=== PATIENT | female | born 1970 | race Caucasian/White ===

== ENCOUNTER 2016-12-07 14:31 | Emergency (ER) | payer MEDICARE ==
[~2016-12-07] VITALS: Ht 160 cm; Wt 72.7 kg
[~2016-12-07 14:31] MED LIST: ANTIVERT 25MG25 MG PO; ASPIRIN E.C. 8181 MG PO; CIPRO 500MG TA500 MG PO; CLARITIN 1010 MG/TAB PO; COLACE 100100 MG/CAP PO; CYMBALTA 30MG30 MG PO; FLAGYL500 MG PO; FLEXERIL 1010 MG/TAB PO; LIPITOR 40MG TA40 MG PO; LYRICA 50MG CAP50 MG PO; NO HOME MEDICATIONS; NORCO 325 MG-51 TAB PO; NORCO 325 MG-7.1 TAB PO; PEPCID 20MG TAB20 MG PO; PERCOCET 325 MG1 TA2 PO; PRILOSEC 20MG20 MG PO; PROAIR HFA0.09 MG/AC IH; TOPROL XL 25MG25 MG PO; TYLENOL 500MG500 MG PO; VALIUM 5MG T5 MG/TAB PO; VITAMIN D1000 IU PO; VTAMINC250TA PO; ZITHROMAX 250M250 MG PO; ZOFRAN 4MG T4 MG/TAB PO; ZOFRAN ODT4 MG PO
[2016-12-07 14:35] VITALS: BP 116/77; PULSE 102; TEMP 97.9
[2016-12-07] MEDS ORDERED: PREDNISONE20 MG PO (15:13)
== END 2016-12-07 15:30 | disposition home or self-care (01) ==
LOC: COL.ER 14:31
DX: L51.9 Erythema multiforme, unspecified (principal)
CPT/HCPCS: J7512

== ENCOUNTER 2016-12-09 13:39 | Observation (INO) | payer MEDICARE ==
[2016-12-09] VITALS (100 sets, daily range): BP systolic 90–92; BP diastolic 54–58; PULSE 58–80; TEMP 97.1–98.1; O2SAT 93–98
[~2016-12-09] VITALS: Ht 160 cm; Wt 73.1 kg
[~2016-12-09 13:39] MED LIST changes: +PREDNISONE20 MG PO
[2016-12-09] MEDS ORDERED: EPIPEN 2-PAK1 MG/ML IM (15:40)
[2016-12-09] MEDS ORDERED: MEDROL 4MG DOSPA4 MG PO (15:40)
[2016-12-09 19:49] LABS: BASO % 0.1 % (0.0-2.0); GRAN # 14.6 (1.4-6.5); GRAN % 72.8 % (42.2-75.2); HEMATOCRIT 37.8 % (37.0-47.0); HEMOGLOBIN 12.6 g/dl (12.5-16.0); LYMPH # 4.8 (1.2-3.4); LYMPH % 23.8 % (20.0-51.0); MEAN CELL VOLUME 94 fl (80.0-100.0); MEAN CORPUSCULAR HEMOGLOBIN 31 pg (27.0-31.0); MEAN CORPUSCULAR HGB CONC 33 g/dl (33.0-37.0); MONO # 0.6 (0.1-0.6); MONO % 2.8 % (1.7-9.3); PLATELET COUNT 229 K/mm3 (130-400); RED BLOOD COUNT 4.04 M/mm3 (4.10-5.30); REDCELL DISTRIBUTION WIDTH-CV 14.2 % (11.5-14.5)
[2016-12-09 19:50] LABS: WHITE BLOOD COUNT 20.1 K/mm3 (4.8-10.8)
[2016-12-09 20:00] LABS: ADJUSTED CALCIUM 9.2 mg/dL (8.4-10.2); ALBUMIN 3.3 gm/dL (3.5-5.0); BILIRUBIN,TOTAL 0.7 mg/dL (0.0-1.0); C-REACTIVE PROTEIN 4.9 mg/dL (0.0-0.9); CALCIUM 8.6 mg/dL (8.4-10.2); CREATININE, serum 0.71 mg/dL (0.52-1.25); POTASSIUM 3.6 mmol/L (3.4-5.0); TOTAL PROTEIN 6.4 gm/dL (6.4-8.2)
[2016-12-10] VITALS (692 sets, daily range): BP systolic 78–103; BP diastolic 43–58; PULSE 60–99; TEMP 97.2–98.2; O2SAT 86–99
[2016-12-10 08:36] LABS: PH 6 (5-8); SQUAMOUS EPITHELIAL 0-2 /hpf; URINE APPEARANCE Clear; URINE BACTERIA None Seen /hpf; URINE BILIRUBIN Negative (NEGATIVE); URINE BLOOD Negative (NEGATIVE); URINE COLOR Straw; URINE GLUCOSE Negative (NEGATIVE); URINE KETONE Trace (NEGATIVE); URINE RBC 0-2 /hpf; URINE UROBILINOGEN Negative (NEGATIVE); URINE WBC 0-2 /hpf
[2016-12-10 09:11] LABS: BASO % 0.1 % (0.0-2.0); GRAN # 10.5 (1.4-6.5); GRAN % 84.4 % (42.2-75.2); LYMPH # 1.7 (1.2-3.4); LYMPH % 13.7 % (20.0-51.0); MEAN CELL VOLUME 91 fl (80.0-100.0); MEAN CORPUSCULAR HGB CONC 34 g/dl (33.0-37.0); MONO # 0.2 (0.1-0.6); MONO % 1.2 % (1.7-9.3); PLATELET COUNT 190 K/mm3 (130-400); RED BLOOD COUNT 3.39 M/mm3 (4.10-5.30); REDCELL DISTRIBUTION WIDTH-CV 14.3 % (11.5-14.5); WHITE BLOOD COUNT 12.4 K/mm3 (4.8-10.8)
[2016-12-10 09:21] LABS: CALCIUM 8.3 mg/dL (8.4-10.2); CREATININE, serum 0.49 mg/dL (0.52-1.25); POTASSIUM 3.6 mmol/L (3.4-5.0)
[2016-12-10 09:36] LABS: HEMOGLOBIN 10.5 g/dl (12.5-16.0); MEAN CORPUSCULAR HEMOGLOBIN 31 pg (27.0-31.0)
[2016-12-11] VITALS (134 sets, daily range): BP systolic 90–104; BP diastolic 49–69; PULSE 48–79; TEMP 97.8–98.3; O2SAT 92–96
[2016-12-11] MEDS ORDERED: ZANTAC 150MG T150 MG PO (11:40)
[2016-12-11] MEDS ORDERED: BENADRYL25 M2 PO (11:41)
[2016-12-11] MEDS ORDERED: EPIPEN 2-PAK1 MG/ML IM (11:44)
[2016-12-11] MEDS ORDERED: CLARITIN 1010 MG/TAB PO (11:45)
[2016-12-11] MEDS ORDERED: PREDNISONE20 MG PO (11:45)
== END 2016-12-11 15:15 | disposition home or self-care (01) ==
LOC: COL.ER 13:39 → ICU 19:52 → IMCU 12-10 18:04
PROVIDERS: Emergency Medicine; Internal Medicine; Nurse Practitioner Family
DX: T78.2XXA Anaphylactic shock, unspecified, initial encounter (principal); L50.9 Urticaria, unspecified; R06.02 Shortness of breath; I10 Essential (primary) hypertension; M79.7 Fibromyalgia; K58.9 Irritable bowel syndrome, unspecified; K21.9 Gastro-esophageal reflux disease without esophagitis
CPT/HCPCS: 99239; G0378; J0171; J1200; J1650; J2930; J7030

== ENCOUNTER 2017-01-18 20:16 | Emergency (ER) | payer MEDICARE, MEDICAID ==
[~2017-01-18] VITALS: Ht 160 cm; Wt 72.7 kg
[~2017-01-18 20:16] MED LIST changes: +BENADRYL25 M2 PO; +EPIPEN 2-PAK1 MG/ML IM; +MEDROL 4MG DOSPA4 MG PO; +ZANTAC 150MG T150 MG PO
[2017-01-18 20:21] VITALS: BP 114/75; TEMP 98.1
[2017-01-18] MEDS ORDERED: AMOXICILLIN 8751 TAB PO (22:04)
[2017-01-18 22:25] VITALS: PULSE 86
== END 2017-01-18 22:25 | disposition home or self-care (01) ==
LOC: COL.ER 20:16
DX: S61.252A Open bite of right middle finger without damage to nail, initial encounter (principal); S61.251A Open bite of left index finger without damage to nail, initial encounter; W54.0XXA Bitten by dog, initial encounter; Y92.009 Unspecified place in unspecified non-institutional (private) residence as the place of occurrence of the external cause; Z23 Encounter for immunization

== ENCOUNTER 2017-02-01 18:27 | Emergency (ER) | payer MEDICARE, MEDICAID ==
[~2017-02-01 18:27] MED LIST changes: +AMOXICILLIN 8751 TAB PO
[2017-02-01 18:31] VITALS: BP 118/66; PULSE 88; TEMP 98.2
== END 2017-02-01 18:37 | disposition home or self-care (01) ==
LOC: COL.ER 18:27
DX: Z48.02 Encounter for removal of sutures (principal)

== ENCOUNTER 2017-02-16 17:58 | Emergency (ER) | payer MEDICARE, MEDICAID ==
[~2017-02-16] VITALS: Ht 160 cm; Wt 68.2 kg
[2017-02-16 18:01] VITALS: BP 128/66; TEMP 98.2
[2017-02-16 19:03] LABS: BASO % 0.2 % (0.0-2.0); EOS # 0.1 (0.0-0.7); EOS % 0.7 % (0-4.0); GRAN # 5.3 (1.4-6.5); GRAN % 56.4 % (42.2-75.2); HEMATOCRIT 42.2 % (37.0-47.0); HEMOGLOBIN 14.6 g/dl (12.5-16.0); LYMPH # 3.5 (1.2-3.4); LYMPH % 36.8 % (20.0-51.0); MEAN CELL VOLUME 89 fl (80.0-100.0); MEAN CORPUSCULAR HEMOGLOBIN 31 pg (27.0-31.0); MEAN CORPUSCULAR HGB CONC 35 g/dl (33.0-37.0); MEAN PLATELET VOLUME 9.9 fl (7.4-10.4); MONO # 0.5 (0.1-0.6); MONO % 5.7 % (1.7-9.3); PLATELET COUNT 235 K/mm3 (130-400); RED BLOOD COUNT 4.73 M/mm3 (4.10-5.30); REDCELL DISTRIBUTION WIDTH-CV 12.7 % (11.5-14.5); WHITE BLOOD COUNT 9.5 K/mm3 (4.8-10.8)
[2017-02-16 19:11] LABS: ADJUSTED CALCIUM 9.3 mg/dL (8.4-10.2); ALBUMIN 4.4 gm/dL (3.5-5.0); BILIRUBIN,TOTAL 0.6 mg/dL (0.0-1.0); CALCIUM 9.6 mg/dL (8.4-10.2); CREATININE, serum 0.69 mg/dL (0.52-1.25); POTASSIUM 4.2 mmol/L (3.4-5.0); TOTAL PROTEIN 7.9 gm/dL (6.4-8.2)
[2017-02-16] MEDS ORDERED: FIORICET 325 MG1 TA1 PO (20:18)
[2017-02-16] MEDS ORDERED: ZOFRAN ODT4 MG PO (20:18)
[2017-02-16 20:28] VITALS: PULSE 83
== END 2017-02-16 20:32 | disposition home or self-care (01) ==
LOC: COL.ER 17:58
PROVIDERS: Emergency Medicine
DX: G43.909 Migraine, unspecified, not intractable, without status migrainosus (principal); F17.210 Nicotine dependence, cigarettes, uncomplicated
CPT/HCPCS: J1200; J2765; J3010; J7030

== ENCOUNTER 2017-02-17 05:11 | Emergency (ER) | payer MEDICARE, MEDICAID ==
[~2017-02-17] VITALS: Ht 160 cm; Wt 68.0 kg
[~2017-02-17 05:11] MED LIST changes: +FIORICET 325 MG1 TA1 PO
[2017-02-17 05:13] VITALS: BP 117/67; TEMP 98.2
[2017-02-17 07:56] VITALS: PULSE 74
== END 2017-02-17 08:00 | disposition home or self-care (01) ==
LOC: COL.ER 05:11
DX: G43.909 Migraine, unspecified, not intractable, without status migrainosus (principal)
CPT/HCPCS: J1170; J1885; J2550

== ENCOUNTER 2017-04-01 19:02 | Emergency (ER) | payer MEDICARE, MEDICAID ==
[~2017-04-01] VITALS: Ht 160 cm; Wt 65.9 kg
[2017-04-01 19:18] VITALS: TEMP 98.4
[2017-04-01] MEDS ORDERED: CYMBALTA 60MG60 MG PO (19:22)
[2017-04-01] MEDS ORDERED: FLEXERIL 1010 MG/TAB PO (21:25)
[2017-04-01] MEDS ORDERED: NORCO 325 MG-51 TAB PO (21:25)
[2017-04-01 21:34] VITALS: BP 110/78; PULSE 82
== END 2017-04-01 21:36 | disposition home or self-care (01) ==
LOC: COL.ER 19:02
DX: M54.41 Lumbago with sciatica, right side (principal)
CPT/HCPCS: J1170; J1885

== ENCOUNTER → 2017-04-17 | Outpatient (CLI) | payer MEDICARE, MEDICAID ==
[~2017-04-17] MED LIST changes: +CYMBALTA 60MG60 MG PO; +DOXYCYCLINE 10100 MG PO
== END ==
LOC: COL.RAD 09:30
DX: M25.551 Pain in right hip (principal); M13.851 Other specified arthritis, right hip
CPT/HCPCS: J3301; Q9967

== ENCOUNTER 2017-05-21 21:43 | Emergency (ER) | payer MEDICARE, MEDICAID ==
[~2017-05-21] VITALS: Ht 160 cm; Wt 63.6 kg
[~2017-05-21 21:43] MED LIST changes: -DOXYCYCLINE 10100 MG PO
[2017-05-21 21:54] VITALS: TEMP 98.2
[2017-05-21 23:40] VITALS: BP 119/68; PULSE 88
== END 2017-05-21 23:41 | disposition home or self-care (01) ==
LOC: COL.ER 21:43
DX: T63.461A Toxic effect of venom of wasps, accidental (unintentional), initial encounter (principal); F32.9 Major depressive disorder, single episode, unspecified; K58.9 Irritable bowel syndrome, unspecified; G93.2 Benign intracranial hypertension; I10 Essential (primary) hypertension; J44.9 Chronic obstructive pulmonary disease, unspecified; F17.210 Nicotine dependence, cigarettes, uncomplicated; Z90.89 Acquired absence of other organs; Z79.82 Long term (current) use of aspirin; Z90.710 Acquired absence of both cervix and uterus; Z98.890 Other specified postprocedural states
CPT/HCPCS: J0171; J1170; J1200; J2930; J7030

== ENCOUNTER 2017-06-06 08:30 | Emergency (ER) | payer MEDICARE, MEDICAID ==
[~2017-06-06] VITALS: Ht 160 cm; Wt 65.9 kg
[2017-06-06 08:35] VITALS: BP 103/61; PULSE 73; TEMP 98
== END 2017-06-06 11:38 | disposition home or self-care (01) ==
LOC: COL.ER 08:30
DX: R51 Headache (principal); G93.2 Benign intracranial hypertension; K58.9 Irritable bowel syndrome, unspecified; F17.210 Nicotine dependence, cigarettes, uncomplicated; Z79.82 Long term (current) use of aspirin; Z90.49 Acquired absence of other specified parts of digestive tract
CPT/HCPCS: J1200; J1885; J2765; J7030

== ENCOUNTER 2017-06-22 12:53 | Emergency (ER) | payer MEDICARE, MEDICAID ==
[~2017-06-22] VITALS: Ht 160 cm; Wt 68.2 kg
[2017-06-22 12:55] VITALS: BP 131/64; TEMP 98.8
[2017-06-22] MEDS ORDERED: DOXYCYCLINE 10100 MG PO (13:38)
[2017-06-22 14:07] VITALS: PULSE 103
== END 2017-06-22 14:08 | disposition home or self-care (01) ==
LOC: COL.ER 12:53
DX: S30.861A Insect bite (nonvenomous) of abdominal wall, initial encounter (principal); L02.413 Cutaneous abscess of right upper limb; K21.9 Gastro-esophageal reflux disease without esophagitis; I10 Essential (primary) hypertension; G93.2 Benign intracranial hypertension; F17.200 Nicotine dependence, unspecified, uncomplicated; Z90.89 Acquired absence of other organs; Z90.721 Acquired absence of ovaries, unilateral; W57.XXXA Bitten or stung by nonvenomous insect and other nonvenomous arthropods, initial encounter

== ENCOUNTER → 2017-07-08 | Outpatient (CLI) | payer MEDICARE, MEDICAID ==
[~2017-07-08] MED LIST changes: +DOXYCYCLINE 10100 MG PO
== END ==
LOC: COL.RAD 10:08
DX: M25.551 Pain in right hip (principal)
CPT/HCPCS: J3301; Q9967

== ENCOUNTER → 2017-10-20 | Outpatient (CLI) | payer MEDICARE, MEDICAID | LOC: COL.RAD 12:58 | DX: M43.16 Spondylolisthesis, lumbar region (principal) ==

== ENCOUNTER → 2017-10-20 | Outpatient (CLI) | payer MEDICARE, MEDICAID | LOC: MHCPAIN 11:26 | DX: G89.29 Other chronic pain (principal); M47.817 Spondylosis without myelopathy or radiculopathy, lumbosacral region; M53.3 Sacrococcygeal disorders, not elsewhere classified; F17.210 Nicotine dependence, cigarettes, uncomplicated | CPT/HCPCS: G0463 ==

== ENCOUNTER → 2017-11-06 | Outpatient (CLI) | payer MEDICARE, MEDICAID | LOC: MHCPAIN 09:48 | DX: M47.817 Spondylosis without myelopathy or radiculopathy, lumbosacral region (principal); M46.87 Other specified inflammatory spondylopathies, lumbosacral region; M43.17 Spondylolisthesis, lumbosacral region | CPT/HCPCS: J1040; J2250; J3010; Q9967 ==

== ENCOUNTER → 2017-12-10 | Outpatient (CLI) | payer MEDICARE, MEDICAID | LOC: MHCPAIN 14:09 | DX: G89.29 Other chronic pain (principal); M47.817 Spondylosis without myelopathy or radiculopathy, lumbosacral region; M53.3 Sacrococcygeal disorders, not elsewhere classified; F17.210 Nicotine dependence, cigarettes, uncomplicated | CPT/HCPCS: G0463 ==

== ENCOUNTER 2017-12-29 22:06 | Emergency (ER) | payer MEDICARE, MEDICAID ==
[~2017-12-29] VITALS: Ht 160 cm; Wt 68.2 kg
[2017-12-29 22:12] VITALS: TEMP 98.5
[2017-12-29] MEDS ORDERED: LIORESAL 1010 MG/TAB PO (23:01)
[2017-12-29] MEDS ORDERED: PRILOSEC 20MG20 MG PO (23:01)
[2017-12-29] MEDS ORDERED: FLONASE NASAL S16 GM NS (23:02)
[2017-12-29] MEDS ORDERED: 00186-0370-20 IH (23:03)
[2017-12-29] MEDS ORDERED: D-2000 90 MG-201 TAB PO (23:04)
[2017-12-30] MEDS ORDERED: PREDNISONE20 MG PO (01:21)
[2017-12-30] MEDS ORDERED: PHENERGAN W/CO120 M1 PO (01:21)
[2017-12-30] MEDS ORDERED: ZITHROMAX 250M250 MG PO (01:21)
[2017-12-30 02:17] VITALS: BP 134/86; PULSE 119
== END 2017-12-30 02:20 | disposition home or self-care (01) ==
LOC: COL.ER 22:06
DX: J44.0 Chronic obstructive pulmonary disease with (acute) lower respiratory infection (principal); J20.9 Acute bronchitis, unspecified; F17.210 Nicotine dependence, cigarettes, uncomplicated
CPT/HCPCS: J2060; J7512

== ENCOUNTER → 2018-03-10 | Outpatient (CLI) | payer MEDICARE, MEDICAID ==
[~2018-03-10] MED LIST changes: +00186-0370-20 IH; +D-2000 90 MG-201 TAB PO; +FLONASE NASAL S16 GM NS; +LIORESAL 1010 MG/TAB PO; +PHENERGAN W/CO120 M1 PO
== END ==
LOC: MHCPAIN 13:57
DX: G89.29 Other chronic pain (principal); M47.817 Spondylosis without myelopathy or radiculopathy, lumbosacral region; M53.3 Sacrococcygeal disorders, not elsewhere classified
CPT/HCPCS: G0463

== ENCOUNTER 2018-04-07 03:22 | Emergency (ER) | payer MEDICARE, MEDICAID ==
[~2018-04-07] VITALS: Ht 160 cm; Wt 68.6 kg
[2018-04-07 03:25] VITALS: TEMP 98.1
[2018-04-07 04:11] LABS: BASO % 0.3 % (0.0-2.0); EOS # 0.1 (0.0-0.7); EOS % 0.8 % (0-4.0); GRAN # 4.3 (1.4-6.5); GRAN % 49.7 % (42.2-75.2); HEMOGLOBIN 11.4 g/dl (12.5-16.0); LYMPH # 3.4 (1.2-3.4); LYMPH % 38.6 % (20.0-51.0); MEAN CELL VOLUME 89 fl (80.0-100.0); MEAN CORPUSCULAR HEMOGLOBIN 31 pg (27.0-31.0); MEAN CORPUSCULAR HGB CONC 35 g/dl (33.0-37.0); MEAN PLATELET VOLUME 8.9 fl (7.4-10.4); MONO # 0.9 (0.1-0.6); MONO % 10.3 % (1.7-9.3); PLATELET COUNT 239 K/mm3 (130-400); RED BLOOD COUNT 3.71 M/mm3 (4.10-5.30); REDCELL DISTRIBUTION WIDTH-CV 13.8 % (11.5-14.5)
[2018-04-07 04:22] LABS: INR 0.9 (0.8-3.0); PROTHROMBIN TIME 9.8 SECONDS (9.7-12.8)
[2018-04-07 04:23] LABS: ALBUMIN 3.7 gm/dL (3.5-5.0); BILIRUBIN,TOTAL 0.2 mg/dL (0.0-1.0); CREATININE, serum 0.71 mg/dL (0.52-1.25); MAGNESIUM 1.9 mg/dL (1.6-2.3); PHOSPHOROUS 4.2 mg/dL (2.5-4.5); POTASSIUM 3.7 mmol/L (3.4-5.0)
[2018-04-07 04:25] LABS: PARTIAL THROMBOPLASTIN TIME 30.4 SECONDS (26.0-37.0)
[2018-04-07 04:54] LABS: TSH w REFLEX 1.15 uIU/mL (0.465-4.680)
[2018-04-07 05:21] LABS: COLLECTION METHOD CLEAN CATCH
[2018-04-07 05:30] LABS: MUCOUS Present /lpf; PH 6 (5-8); SQUAMOUS EPITHELIAL 0-2 /hpf; URINE APPEARANCE Clear; URINE BACTERIA None Seen /hpf; URINE BILIRUBIN Negative (NEGATIVE); URINE BLOOD 1+ (NEGATIVE); URINE COLOR Yellow; URINE GLUCOSE Negative (NEGATIVE); URINE KETONE Negative (NEGATIVE); URINE LEUKOCYTE ESTERASE 2+ (NEGATIVE); URINE NITRATE Negative (NEGATIVE); URINE PROTEIN(semi-quant) Negative (NEGATIVE)
[2018-04-07 06:00] VITALS: BP 93/77; PULSE 104
== END 2018-04-07 06:01 | disposition home or self-care (01) ==
LOC: COL.ER 03:22
PROVIDERS: Emergency Medicine
DX: G89.29 Other chronic pain (principal); M54.5 Low back pain; R60.9 Edema, unspecified; J45.909 Unspecified asthma, uncomplicated; F17.210 Nicotine dependence, cigarettes, uncomplicated; Z79.52 Long term (current) use of systemic steroids; Z79.51 Long term (current) use of inhaled steroids; Z87.39 Personal history of other diseases of the musculoskeletal system and connective tissue; W18.39XA Other fall on same level, initial encounter
CPT/HCPCS: J1170; J1650

== ENCOUNTER → 2018-04-07 | Outpatient (CLI) | payer MEDICARE, MEDICAID | LOC: COL.VAS 16:15 | DX: M79.661 Pain in right lower leg (principal); R60.9 Edema, unspecified ==

== ENCOUNTER 2019-03-24 18:15 | Emergency (ER) | payer MEDICARE, MEDICAID ==
[~2019-03-24] VITALS: Ht 160 cm; Wt 70.5 kg
[2019-03-24 18:32] VITALS: BP 137/71; TEMP 97
[2019-03-24] MEDS ORDERED: NORCO 325 MG-51 TAB PO (20:40)
[2019-03-24 22:10] VITALS: PULSE 65
== END 2019-03-24 22:11 | disposition home or self-care (01) ==
LOC: COL.ER 18:15
DX: S22.31XA Fracture of one rib, right side, initial encounter for closed fracture (principal); F17.210 Nicotine dependence, cigarettes, uncomplicated; V89.2XXA Person injured in unspecified motor-vehicle accident, traffic, initial encounter

== ENCOUNTER → 2019-04-22 | Outpatient (CLI) | payer MEDICARE, MEDICAID | LOC: COL.RAD 09:59 | DX: S22.20XD Unspecified fracture of sternum, subsequent encounter for fracture with routine healing (principal); J43.9 Emphysema, unspecified ==

== ENCOUNTER 2019-06-01 10:19 | Emergency (ER) | payer MEDICARE, MEDICAID ==
[~2019-06-01] VITALS: Ht 7.6 cm; Wt 72.7 kg
[2019-06-01 10:33] VITALS: BP 168/86; TEMP 97.5
[2019-06-01] MEDS ORDERED: NORCO 325 MG-51 TAB PO (11:46)
[2019-06-01] MEDS ORDERED: AMOXICILLIN 50500 MG PO (11:46)
[2019-06-01 11:57] VITALS: PULSE 98
== END 2019-06-01 11:59 | disposition home or self-care (01) ==
LOC: COL.ER 10:19
DX: K02.9 Dental caries, unspecified (principal); K58.9 Irritable bowel syndrome, unspecified; F17.210 Nicotine dependence, cigarettes, uncomplicated; Z79.52 Long term (current) use of systemic steroids; Z79.51 Long term (current) use of inhaled steroids
CPT/HCPCS: J1885; J2405

== ENCOUNTER 2020-06-12 11:56 | Emergency (ER) | payer MEDICARE, MEDICAID ==
[~2020-06-12] VITALS: Ht 160 cm; Wt 72.7 kg
[~2020-06-12 11:56] MED LIST changes: +AMOXICILLIN 50500 MG PO
[2020-06-12 12:01] VITALS: TEMP 98.2
[2020-06-12 13:20] VITALS: BP 131/72; PULSE 100
== END 2020-06-12 13:22 | disposition home or self-care (01) ==
LOC: COL.ER 11:56
DX: S01.81XA Laceration without foreign body of other part of head, initial encounter (principal); R60.0 Localized edema; Z88.8 Allergy status to other drugs, medicaments and biological substances; Z79.52 Long term (current) use of systemic steroids; Z79.51 Long term (current) use of inhaled steroids; W22.8XXA Striking against or struck by other objects, initial encounter

== ENCOUNTER → 2020-06-26 | Outpatient (CLI) | payer MEDICARE, MEDICAID ==
[2020-06-26 21:14] VITALS: BP 116/77; PULSE 108
== END ==
LOC: COL.ER 20:55
DX: Z48.02 Encounter for removal of sutures (principal)

== ENCOUNTER 2020-07-28 00:24 | Emergency (ER) | payer MEDICARE, MEDICAID ==
[~2020-07-28] VITALS: Ht 160 cm; Wt 75.0 kg
[2020-07-28] MEDS ORDERED: AMOXICILLIN 8751 TAB PO (01:47)
[2020-07-28 02:00] VITALS: BP 128/64; PULSE 80; TEMP 97.6
== END 2020-07-28 02:10 | disposition home or self-care (01) ==
LOC: COL.ER 00:24
DX: S61.255A Open bite of left ring finger without damage to nail, initial encounter (principal); S61.353A Open bite of left middle finger with damage to nail, initial encounter; Z79.52 Long term (current) use of systemic steroids; Z79.51 Long term (current) use of inhaled steroids; W54.0XXA Bitten by dog, initial encounter

== ENCOUNTER → 2020-08-16 | Outpatient (CLI) | payer MEDICARE, MEDICAID | LOC: COL.RAD 07:30 | DX: M50.30 Other cervical disc degeneration, unspecified cervical region (principal) ==

== ENCOUNTER → 2021-08-17 | Outpatient (CLI) | payer MEDICARE, MEDICAID | LOC: MC.RAD 10:00 | DX: N63.20 Unspecified lump in the left breast, unspecified quadrant (principal); N60.02 Solitary cyst of left breast; R92.8 Other abnormal and inconclusive findings on diagnostic imaging of breast ==

== ENCOUNTER → 2021-08-22 | Outpatient (CLI) | payer MEDICARE, MEDICAID | LOC: COL.RAD 13:02 | DX: M51.34 Other intervertebral disc degeneration, thoracic region (principal) ==

== ENCOUNTER → 2022-01-11 | Outpatient (CLI) | payer MEDICARE, MEDICAID | LOC: COL.RAD 10:18 | DX: R51.9 Headache, unspecified (principal) ==

== ENCOUNTER 2022-06-27 23:23 | Emergency (ER) | payer MEDICARE, MEDICAID ==
[~2022-06-27] VITALS: Ht 160 cm; Wt 71.8 kg
[2022-06-27 23:42] VITALS: TEMP 98
[2022-06-28 01:30] VITALS: BP 102/56; PULSE 74
== END 2022-06-28 01:51 | disposition home or self-care (01) ==
LOC: COL.ER 23:23
DX: S20.211A Contusion of right front wall of thorax, initial encounter (principal); F17.200 Nicotine dependence, unspecified, uncomplicated; Z28.310 Unvaccinated for COVID-19; W18.30XA Fall on same level, unspecified, initial encounter
CPT/HCPCS: J1885

== ENCOUNTER 2022-07-22 16:53 | Emergency (ER) | payer MEDICARE, MEDICAID ==
[~2022-07-22] VITALS: Ht 160 cm; Wt 72.7 kg
[2022-07-22 17:30] VITALS: TEMP 97.7
[2022-07-22] MEDS ORDERED: MEDROL 4MG DOSPA4 MG PO (19:57)
[2022-07-22 20:17] VITALS: BP 113/66; PULSE 101
== END 2022-07-22 20:18 | disposition home or self-care (01) ==
LOC: COL.ER 16:53
DX: S39.012A Strain of muscle, fascia and tendon of lower back, initial encounter (principal); F17.210 Nicotine dependence, cigarettes, uncomplicated; Z28.310 Unvaccinated for COVID-19; X50.1XXA Overexertion from prolonged static or awkward postures, initial encounter
CPT/HCPCS: J1885

== ENCOUNTER → 2022-09-25 | Outpatient (CLI) | payer MEDICARE, MEDICAID | LOC: COL.RAD 12:30 | DX: S46.012A Strain of muscle(s) and tendon(s) of the rotator cuff of left shoulder, initial encounter (principal); X58.XXXA Exposure to other specified factors, initial encounter; G93.2 Benign intracranial hypertension; G43.919 Migraine, unspecified, intractable, without status migrainosus ==